=== PATIENT | male | born 2000 | race Two or more races ===

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

== ENCOUNTER → 2019-10-06 | Outpatient (CLI) | payer OTHER ==
--- NOTE | 2019-10-06 15:12 | RADIOLOGY REPORT (SQ) ---
EXAM DESCRIPTION: HAND LEFT 2 VIEWS COMPLETED DATE/TIME: 10/06/2019 2:54 pm REASON FOR STUDY: PAIN IN LEFT HAND M79.642 PAIN IN LEFT HAND COMPARISON: None. EXAM PARAMETERS: NUMBER OF VIEWS: Two view. TECHNIQUE: AP and lateral radiographic images acquired of the left hand. LIMITATIONS: None. FINDINGS: MINERALIZATION: Normal. BONES: No acute fracture or dislocation. No worrisome bone lesions. No significant osteophytes. JOINTS: No erosions. No ayde-articular osteopenia. No chondrocalcinosis. SOFT TISSUES: No swelling. No calcifications. OTHER: No other significant finding. IMPRESSION: NEGATIVE STUDY OF THE LEFT HAND. NO EXPLANATION FOR PAIN. TECHNICAL DOCUMENTATION: JOB ID: [id number] 2010 [employer]- All Rights Reserved Reading location - IP/workstation name: [email or web address]
== END ==
LOC: RAD 14:41
PROVIDERS: ATTEND Internal Medicine
DX: M79.642 Pain in left hand (principal)

== ENCOUNTER → 2019-12-03 | Day surgery (SDC) | payer OTHER ==
--- NOTE | 2019-12-03 15:20 | RADIOLOGY REPORT (SQ) ---
EXAM DESCRIPTION: ARTHRO WRIST INJECTION; FLUORO/NEEDLE PLACEMENT IMAGES COMPLETED DATE/TIME: 12/03/2019 3:00 pm REASON FOR STUDY: S69.82XA OTH INJURIES OF LEFT WRIST, HAND AND FINGER(S), INIT ENCNTR S69.82XA OTH INJURIES OF LEFT WRIST, HAND AND FINGER(S), INI COMPARISON: None. FLUOROSCOPY TIME: 17 SECONDS OF FLUOROSCOPY WAS USED 1 images saved to PACS. LIMITATIONS: None. PROCEDURE: Procedure, risks, benefits and alternatives explained to patient who then gave written co nsent. The left wrist was marked and a time-out was called for correct marking verification. Radioca rpal site marked using fluoroscopic guidance. Wrist prepped and draped using sterile technique. Loc al anesthesia achieved using 0.5 mL 1% lidocaine injection. Hypodermic needle introduced into the domingo int space under direct fluoroscopic visualization. 0.5 mL Omnipaque 300 instilled to confirm intra-a rticular position. Dilute gadolinium solution then injected. Needle removed and entry site covered w ith sterile bandage. No immediate complications noted. TECHNIQUE: Digital images acquired during fluoroscopy and stored on PACS. Patient immediately take n to the MR suite for additional imaging. INJECTION LOCATION: Left wrist. CONTRAST TYPE AND AMOUNT: 2 mL Dotarem/Saline mixture. IMPRESSION: SUCCESSFUL NEEDLE PLACEMENT AND INJECTION FOR LEFT WRIST MR ARTHROGRAM. COMMENT: Quality ID #[id number]: Final reports for procedures using fluoroscopy that document radiation exp osure indices, or exposure time and number of fluorographic images (if radiation exposure indices are not available) TECHNICAL DOCUMENTATION: JOB ID: [id number] 2010 [employer]- All Rights Reserved Reading location - IP/workstation name: [email or web address] [id number]
--- NOTE | 2019-12-03 15:20 | RADIOLOGY REPORT (SQ) ---
EXAM DESCRIPTION: ARTHRO WRIST INJECTION; FLUORO/NEEDLE PLACEMENT IMAGES COMPLETED DATE/TIME: 12/03/2019 3:00 pm REASON FOR STUDY: S69.82XA OTH INJURIES OF LEFT WRIST, HAND AND FINGER(S), INIT ENCNTR S69.82XA OTH INJURIES OF LEFT WRIST, HAND AND FINGER(S), INI COMPARISON: None. FLUOROSCOPY TIME: 17 SECONDS OF FLUOROSCOPY WAS USED 1 images saved to PACS. LIMITATIONS: None. PROCEDURE: Procedure, risks, benefits and alternatives explained to patient who then gave written co nsent. The left wrist was marked and a time-out was called for correct marking verification. Radioca rpal site marked using fluoroscopic guidance. Wrist prepped and draped using sterile technique. Loc al anesthesia achieved using 0.5 mL 1% lidocaine injection. Hypodermic needle introduced into the domingo int space under direct fluoroscopic visualization. 0.5 mL Omnipaque 300 instilled to confirm intra-a rticular position. Dilute gadolinium solution then injected. Needle removed and entry site covered w ith sterile bandage. No immediate complications noted. TECHNIQUE: Digital images acquired during fluoroscopy and stored on PACS. Patient immediately take n to the MR suite for additional imaging. INJECTION LOCATION: Left wrist. CONTRAST TYPE AND AMOUNT: 2 mL Dotarem/Saline mixture. IMPRESSION: SUCCESSFUL NEEDLE PLACEMENT AND INJECTION FOR LEFT WRIST MR ARTHROGRAM. COMMENT: Quality ID #[id number]: Final reports for procedures using fluoroscopy that document radiation exp osure indices, or exposure time and number of fluorographic images (if radiation exposure indices are not available) TECHNICAL DOCUMENTATION: JOB ID: [id number] 2010 [employer]- All Rights Reserved Reading location - IP/workstation name: [email or web address] [id number]
--- NOTE | 2019-12-03 18:46 | RADIOLOGY REPORT (SQ) ---
EXAM DESCRIPTION: MRI LT UPPER JOINT WITH IMAGES COMPLETED DATE/TIME: 12/03/2019 3:31 pm REASON FOR STUDY: S69.82XA OTH INJURIES OF LEFT WRIST, HAND AND FINGER(S), INIT ENCNTR S69.82XA OTH INJURIES OF LEFT WRIST, HAND AND FINGER(S), INI COMPARISON: None. TECHNIQUE: Left wrist post-arthrogram imaging includes T1 and T1 and T2 fat sat sequences. LIMITATIONS: None. FINDINGS: JOINT DISTENSION: Adequate. No loose body. BONE MARROW: Edema in the hamate. No displaced fracture. CARPAL ALIGNMENT AND ARTICULATION: Normal congruity of sigmoid notch at level of distal ruj without p ositive or negative ulnar variance. Normal capitolunate angle. No widening of scapholunate articulati on. SCAPHOLUNATE LIGAMENT: Without tear. No contrast in middle carpal compartment. LUNATO-TRIQUETRAL LIGAMENT: Without tear. No contrast in middle carpal compartment. TFC COMPLEX: Radial and ulnar attachments normal. Meniscus intact. Extensor carpi ulnaris tendon norm al without tendinopathy. No contrast in distal RUJ. EXTRINSIC LIGAMENTS AND DISTAL RADIO-ULNAR JOINT: Dorsal and volar distal RUJ ligaments intact withou t subluxation of the distal ulna with respect to the radius. 1-6 EXTENSOR COMPARTMENTS: Normal. Specifically no tendinopathy of the abductor pollicis longus or ex tensor pollicis brevis to suggest de Quervains syndrome. CARPAL TUNNEL AND MEDIAN NERVE: Normal volume and morphology of carpal tunnel proximal at the level o f the radiocarpal joint and distally at the hook of the hamate. No thickening or signal alteration of median nerve. OTHER: No other significant finding. IMPRESSION: Hamate contusion. No displaced fracture. TECHNICAL DOCUMENTATION: JOB ID: [id number] 2010 [employer]- All Rights Reserved Reading location - IP/workstation name: [email or web address]
== END ==
LOC: RAD 14:22 → EDSTATUS 15:00
PROVIDERS: ATTEND Family Medicine
DX: S60.212A Contusion of left wrist, initial encounter (principal); S69.82XA Other specified injuries of left wrist, hand and finger(s), initial encounter; X58.XXXA Exposure to other specified factors, initial encounter
CPT/HCPCS: 73222; 25246; 77002; A9576